=== PATIENT | male | born 1960 | race Caucasian/White ===

== ENCOUNTER 2018-06-05 15:48 | Emergency (ER) | payer BC ==
[~2018-06-05] VITALS: Ht 175.3 cm; Wt 85.7 kg
--- NOTE | 2018-06-05 16:20 | Diagnostic Imaging Report ---
EXAMINATION: Chest PA and lateral views INDICATION: Heart fluttering. Discomfort. COMPARISON: None FINDINGS: TUBES and LINES: None. LUNGS: Lungs are well inflated. Lungs are clear. There is no evidence of pneumonia or pulmonary edema. PLEURA: No pleural effusion or pneumothorax. HEART AND MEDIASTINUM: The cardiomediastinal silhouette is unremarkable. BONES AND SOFT TISSUES: No acute osseous lesion. Spondylosis of the thoracic spine. UPPER ABDOMEN: No free air under the diaphragm. IMPRESSION: No acute thoracic abnormality. Signed by: Dr. Logan Cross M.D. on 06/05/2018 4:16 PM
[2018-06-05] MEDS ORDERED: CLONIDINE HCL 0.2 MG TAB PO ONE (16:30)
[2018-06-05] MEDS ORDERED: METFORMIN HCL500 MG PO (17:51)
[2018-06-05] MEDS ORDERED: POTASSIUM CHLO10 ME1 PO (17:51)
[2018-06-05] MEDS ORDERED: LOSARTAN POTASS25 MG PO (17:51)
[2018-06-05] MEDS ORDERED: CRESTOR10 MG PO (17:51)
[2018-06-05] MEDS ORDERED: TAMSULOSIN HCL0.4 MG PO (17:51)
[2018-06-05] MEDS ORDERED: METHOCARBAMOL750 MG PO (17:51)
[2018-06-05] MEDS ORDERED: ZOLOFT50 MG PO (17:51)
[2018-06-05] MEDS ORDERED: CLONIDINE HCL0.2 MG PO (17:51)
[2018-06-05] MEDS ORDERED: TRESIBA U INSULIN SQ (17:51)
[2018-06-05] MEDS ORDERED: SYNTHROID125 MCG PO (17:51)
[2018-06-05] MEDS ORDERED: METOPROLOL SUCC50 MG PO (17:51)
[2018-06-05] MEDS ORDERED: METOLAZONE5 MG PO (17:51)
[2018-06-05] MEDS ORDERED: NOVOLOG100 UNIT/1 SC (17:51)
[2018-06-05] MEDS ORDERED: AMLODIPINE BESYL5 MG PO (17:51)
[2018-06-05] MEDS ORDERED: MINOCYCLINE HCL50 MG PO (17:51)
[2018-06-05] MEDS ORDERED: GLYBURIDE5 MG PO (17:51)
== END 2018-06-05 17:53 | disposition home or self-care (01) ==
LOC: FSED 15:48
DX: R00.2 Palpitations (principal); I10 Essential (primary) hypertension; E11.9 Type 2 diabetes mellitus without complications; E03.9 Hypothyroidism, unspecified
CPT/HCPCS: 71046; 80053; 82553; 84484; 99284